=== PATIENT | male | born 1960 | race Caucasian/White ===

== ENCOUNTER 2019-05-20 02:00 | Emergency (ER) | payer OTHER, BC ==
[2019-05-20 02:15] VITALS: BP 168/79; PULSE 74; RESP 20; TEMP 97.9
[2019-05-20] MEDS ORDERED: HYDROcodone/APAP 5-325MG 1 EACH TAB PO STA (02:27)
[2019-05-20] MEDS ORDERED: PROPARACAINE 0.5% OPHTH DROPS 15 ML BTL LEFT EYE STA (02:27)
[2019-05-20] MEDS ORDERED: GABAPENTIN 300 MG CAP PO STA (02:29)
--- NOTE | 2019-05-20 02:43 | ED ---
Eye Problem HPI - General Chief complaint: Eye Problems Stated complaint: Shingles in eye,head pain Time Seen by Provider: 05/20/19 02:20 Source: patient Mode of arrival: ambulatory Limitations: no limitations - History of Present Illness Initial comments: 59-year-old male patient currently doing a clinical trial for lung cancer presents to the emergency department today for evaluation of left eye pain radiating over his scalp. Patient states that he was diagnosed with ocular shingles a couple of weeks ago. He states he has been seen runstitching machine operator and has been doing eyedrops. Did complete antiviral drug regimen. Patient states that his symptoms were improving, but this evening he felt a "snapping" sensation in the left thigh which caused pain to flare in the eyelid and radiate over his forehead and scalp. Patient states that the pain has been significant especially when attempting to touch the eyelid. He denies any drainage from the eye. Denies any fever or chills. States he has had blurred vision since onset of the infection. He was last checked by the runstitching machine operator yesterday. Patient denies any recent shortness breath, chest pain, abdominal pain, nausea, vomiting, diarrhea, constipation, back pain, numbness, tingling, dizziness, weakness, hematuria, dysuria, urinary urgency, urinary frequency, or any other complaints. - Related Data Home Medications Medication Instructions Recorded Confirmed Atropine Ophth Soln 1% 5Ml [Isopto 0 ml 05/20/19 Atropine 1% 5Ml] Cetirizine HCl 10 mg PO DAILY 05/20/19 05/20/19 Fluconazole 200 mg PO DAILY 05/20/19 05/20/19 Losartan [Cozaar] 25 mg PO DAILY 05/20/19 05/20/19 Rosuvastatin [Crestor] 20 mg PO 05/20/19 metFORMIN HCL [Glucophage] 500 mg PO BID 05/20/19 05/20/19 prednisoLONE [prednisoLONE Oral 15 mg PO 05/20/19 Soln] Previous Rx's Medication Instructions Recorded Gabapentin [Neurontin] 300 mg PO Q8H #45 capsule 05/20/19 Hydrocodone/Acetaminophen [Slater 1 tab PO Q6HR PRN #12 tab 05/20/19 5-325] Allergies Allergy/AdvReac Type Severity Reaction Status Date / Time venom-honey bee Allergy Anaphylaxis Verified 01/18/16 11:34 [bee venom (honey bee)] Review of Systems ROS Statement: Those systems with pertinent positive or pertinent negative responses have been documented in the HPI. ROS Other: All systems not noted in ROS Statement are negative. 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 R lung CA History of Any Multi-Drug Resistant Organisms: None Reported Past Surgical History: Appendectomy, Back Surgery, Orthopedic Surgery Additional Past Surgical History / Comment(s): cervical fusion, bilateral knee arthroscopy, middle finger tendon repair, vasectomy Past Anesthesia/Blood Transfusion Reactions: No Reported Reaction Past Psychological History: No Psychological Hx Reported Smoking Status: Never smoker Past Alcohol Use History: None Reported, Occasional Past Drug Use History: None Reported - Past Family History Father Family Medical History: Cancer General Exam Limitations: no limitations General appearance: alert, in no apparent distress, other (This is a well- developed, well-nourished adult male patient in no acute distress. Vital signs upon presentation are temperature 97.9 degrees, pulse 74, respirations 20, blood pressure 168/79, pulse ox 97% on room air.) Eye exam: Present: PERRL, EOMI, conjunctival injection, other (There is some mild conjunctival injection on the left. There are erythematous lesions noted over the left forehead.). Absent: normal appearance, scleral icterus, periorbital swelling Respiratory exam: Present: normal lung sounds bilaterally. Absent: respiratory distress, wheezes, rales, rhonchi, stridor Cardiovascular Exam: Present: regular rate, normal rhythm, normal heart sounds. Absent: systolic murmur, diastolic murmur, rubs, gallop, clicks Neurological exam: Present: alert, oriented X3, CN II-XII intact Psychiatric exam: Present: normal affect, normal mood Skin exam: Present: warm, dry, intact, normal color. Absent: rash Course Vital Signs 05/20/19 02:10 Temperature 97.9 F Pulse Rate 74 Respiratory 20 Rate Blood Pressure 168/79 O2 Sat by Pulse 97 Oximetry Medical Decision Making - Medical Decision Making 59-year-old male patient presented to the emergency department today for evaluation of pain to the left eye with radiation over the scalp. Patient does have current diagnosis of shingles. Physical examination of the eye is unremarkable. Patient symptoms are consistent with nerve pain related to his infection. He'll be started on Neurontin. He was given pain medication here in the emergency department. He is instructed to follow-up with his primary care physician and the runstitching machine operator for reevaluation as well as possible. Return parameters were discussed in detail. He verbalizes understanding and agree with this plan. Disposition Clinical Impression: Shingles of eyelid Disposition: HOME SELF-CARE Condition: Good Instructions (If sedation given, give patient instructions): Gabapentin (By mouth), Shingles (ED) Additional Instructions: Continue applying cool compresses. Take medications as directed. Gabapentin dosing: Take next dose in 24 hours, then take medication every 12 hours for 2 doses, then switch to every 8 hours. Follow-up with your primary care physician for recheck as soon as possible. Follow-up with your runstitching machine operator for recheck as soon as possible. Return to the emergency department immediately for any new, worsening, or concerning symptoms. Prescriptions: Gabapentin [Neurontin] 300 mg PO Q8H #45 capsule Hydrocodone/Acetaminophen [Slater 5-325] 1 tab PO Q6HR PRN #12 tab PRN Reason: Pain Is patient prescribed a controlled substance at d/c from ED?: No Referrals: Vance Carrillo MD [Primary Care Provider] - 1-2 days Time of Disposition: 03:06
[2019-05-20] MEDS ORDERED: KETOROLAC 30 MG/ML 1 ML VIAL IM STA (03:02)
== END 2019-05-20 03:29 | disposition home or self-care (01) ==
LOC: EC 02:00
DX: B02.39 Other herpes zoster eye disease (principal); M19.90 Unspecified osteoarthritis, unspecified site; Z98.1 Arthrodesis status; Z79.899 Other long term (current) drug therapy; Z79.52 Long term (current) use of systemic steroids; Z79.84 Long term (current) use of oral hypoglycemic drugs; Z91.030 Bee allergy status; Z85.118 Personal history of other malignant neoplasm of bronchus and lung
CPT/HCPCS: 99283; 96372; J1885

== ENCOUNTER → 2022-09-10 | Outpatient (CLI) | payer OTHER ==
[2022-09-10 08:45] LABS: African American GFR (CKD) >90 (>60 ml/min/1.73 sqM); Blood Urea Nitrogen 21 mg/dL (9-20); Non-African American GFR(CKD) >90 (>60 ml/min/1.73 sqM)
--- NOTE | 2022-09-10 10:35 | CT ---
EXAMINATION TYPE: CT angio head neck DATE OF EXAM: 09/10/2022 HISTORY: CORONARY ATHEROSCLEROSIS COMPARISON: PET CT 09/19/2017 CT DLP: 353.7 mGycm. Automated Exposure Control for Dose Reduction was Utilized. TECHNIQUE: CTA scan of the head and neck is performed with IV Contrast, patient injected with 65 mL of Isovue 370, axial images are obtained, coronal and sagittal reformatted images are reviewed. 3D re constructed images are created on an independent workstation and reviewed. FINDINGS: Extensive postsurgical changes involving the right neck are again noted. There is standard three-vessel anatomy of the aortic arch which appears to demonstrate widely patent proximal portions of the great vessels. Remaining portion of the visualized subclavian arteries are p atent. The right carotid artery including the common carotid and internal carotid arteries are widely patent with no evidence of significant stenosis. There is eccentric soft plaque involving the left internal carotid artery just distal to the carotid bifurcation with a residual luminal diameter of 1.6 mm findings suggestive of approximately 65% steno sis. There is slight right vertebral artery dominance. The vertebral arteries are patent bilaterally. Postsurgical change involving the cervical spine with hypertrophic and degenerative changes. Previous soft tissue neck postsurgical dissection is noted. Lung apices are clear. Thyroid enhances normally. No pathologic adenopathy. Dental artifact is noted. Intracranial evaluation demonstrates changes of chronic sinusitis. Right vertebral artery dominant. V ertebrobasilar system is patent. Basilar artery is diminutive in size which can be associated with ve rtebrobasilar insufficiency. Posterior cerebral artery originates from the anterior circulation on th e right. Middle cerebral arteries are patent bilaterally. Anterior cerebral arteries appear to be pat ent. No sizable aneurysm or vascular malformation. Visualized dural venous sinuses enhance normally. Incidental note is made of low-lying cerebellar tonsils. IMPRESSION: 1. There is soft tissue plaque involving the proximal left internal carotid artery with approximately 65% stenosis the residual luminal diameter of 1.6 mm. 2. No evidence of intracranial aneurysm or vascular malformation 3. Extensive postsurgical changes involving the soft tissues of the neck.. NASCET criteria was used in interpretation of this exam?
== END | disposition home or self-care (01) ==
LOC: RADCTMAIN 07:53
PROVIDERS: ATTEND Internal Medicine
DX: I65.22 Occlusion and stenosis of left carotid artery (principal); I25.10 Atherosclerotic heart disease of native coronary artery without angina pectoris; I25.84 Coronary atherosclerosis due to calcified coronary lesion
CPT/HCPCS: 82565; 84520; 70496; 70498; 36415; Q9967

== ENCOUNTER 2023-10-09 05:36 | Inpatient (IN) | payer OTHER ==
[2023-10-06 16:00] VITALS: BMI 25.5
[~2023-10-09 05:36] MED LIST: ALPRAZolam 0.25 MG TAB PO PRN; ALPRAZolam 0.5 MG TAB PO PRN; ASPIRIN 325 MG TAB PO PRN; ASPIRIN 81 MG PO PRN; CLOPIDOGREL 75 MG TAB PO PRN; DEXAMETHASONE SOD PHOSPHATE 4 MG/ML 1 ML VIAL IV ONE; NITROGLYCERIN SL TABS 0.4 MG TAB SUBLINGUAL PRN; ONDANSETRON 4 MG/2 ML VIAL IVP ONE; SODIUM CHLORIDE 0.9% 1,000 ML in EMPTY BAG 1 BAG IV ONE
[2023-10-09] MEDS ORDERED: SODIUM CHLORIDE 0.9% 1,000 ML IV ONE ×2 (06:12→08:50)
[2023-10-09 06:35] LABS: Glucose,Whole Blood 121 mg/dL (70-110)
[2023-10-09 06:36] LABS: Basophils # (A) 0.1 k/uL (0-0.2); Basophils % (A) 1 %; Eosinophils # (A) 0.3 k/uL (0-0.7); Eosinophils % (A) 3 %; HGB 16.7 gm/dL (13.0-17.5); Lymphocytes # (A) 1.2 k/uL (1.0-4.8); Lymphocytes % (A) 12 %; MCH 28.7 pg (25.0-35.0); MCHC 32.6 g/dL (31.0-37.0); MCV 88.1 fL (80.0-100.0); Mean Platelet Volume 7.6; Monocytes # (A) 0.7 k/uL (0-1.0); Monocytes % (A) 7 %; Neutrophils # (A) 7.3 k/uL (1.3-7.7); Neutrophils % (A) 73 %; Platelet Count 258 k/uL (150-450); RBC 5.79 m/uL (4.30-5.90); RDW 12.9 % (11.5-15.5); WBC 9.9 k/uL (3.8-10.6)
[2023-10-09 06:56] LABS: African American GFR (CKD) >90 (>60 ml/min/1.73 sqM); Anion Gap 12 mmol/L; Blood Urea Nitrogen 20 mg/dL (9-20); Calcium 9.6 mg/dL (8.4-10.2); Carbon Dioxide 27 mmol/L (22-30); Chloride 100 mmol/L (98-107); Glucose 139 mg/dL (74-99); Non-African American GFR(CKD) >90 (>60 ml/min/1.73 sqM); Potassium 4.7 mmol/L (3.5-5.1); Sodium 139 mmol/L (137-145)
[2023-10-09] MEDS ORDERED: HYDROmorphone 0.5 MG/0.5 ML SYRINGE IVP PRN (07:00)
[2023-10-09] MEDS ORDERED: ceFAZolin 2 GM in SODIUM CHLORIDE 0.9% 500 ML 500 ML IRRIGATION PRN (07:00)
[2023-10-09] MEDS ORDERED: MIDAZOLAM 1 MG/ML 5 ML VIAL IV STA (07:00)
[2023-10-09] MEDS ORDERED: LIDOCAINE 1% INJ 10MG/ML (20 ML MDV) ONE (07:21)
--- NOTE | 2023-10-09 07:30 | P.GSHP ---
History of Present Illness H&P Date: 10/09/23 Chief Complaint: carotid stenosis 63 year old gentleman with history of radical neck dissection, radiation, carotid stenosis, presents to the hospital for left TCAR. He denies any lateralizing symptoms such as weakness, vision changes or speech issues. He denies any fevers, chills, chest pain or shortness of breath. - Review of Systems All systems: negative (what is mentioned in the PMH or HPI) Past Medical History Past Medical History: Cancer, Diabetes Mellitus, Deep Vein Thrombosis (DVT), Hyperlipidemia, Hypertension, Osteoarthritis (OA) Additional Past Medical History / Comment(s): tonsillar cancer 2012 w/ chemo & radiation. 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 History of Any Multi-Drug Resistant Organisms: None Reported Past Surgical History: Appendectomy, Hernia Repair, Orthopedic Surgery Additional Past Surgical History / Comment(s): right neck disection with 21 lymph nodes removed (2015)., cervical fusion, bilateral knee arthroscopy, middle finger tendon repair, vasectomy , inguinal hernia. Past Anesthesia/Blood Transfusion Reactions: No Reported Reaction Past Psychological History: Anxiety Smoking Status: Never smoker Past Alcohol Use History: Occasional Past Drug Use History: Marijuana Additional Drug Use History / Comment(s): occasional gummy for sleep - Past Family History Father Family Medical History: Congestive Heart Failure (CHF), Coronary Artery Disease (CAD) Mother Family Medical History: Cancer, CVA/TIA Additional Family Medical History / Comment(s): lung cancer Brother(s) Family Medical History: Cancer Additional Family Medical History / Comment(s): prostate and skin cancer Medications and Allergies Home Medications Medication Instructions Recorded Confirmed Type Losartan [Cozaar] 25 mg PO DAILY 05/20/19 10/09/23 History Rosuvastatin [Crestor] 20 mg PO DAILY 05/20/19 10/09/23 History metFORMIN HCL [Glucophage] 500 mg PO BID 05/20/19 10/09/23 History Aspirin 325 mg PO DAILY 10/06/23 10/09/23 History Clopidogrel [Plavix] 75 mg PO DAILY 10/06/23 10/09/23 History Dulaglutide [Trulicity] 0.75 mg SQ WEEKLY 10/06/23 10/06/23 History Empagliflozin [Jardiance] 25 mg PO DAILY 10/06/23 10/09/23 History Escitalopram [Lexapro] 5 mg PO DAILY 10/06/23 10/09/23 History Prednisolone Acetate/Pf 1 drop LEFT EYE BID 10/06/23 10/09/23 History [Prednisolone Acet 1% Eye Drop] Allergies Allergy/AdvReac Type Severity Reaction Status Date / Time venom-honey bee Allergy Anaphylaxis Verified 10/06/23 15:05 [bee venom (honey bee)] Surgical - Exam Vital Signs Temp Pulse Resp BP Pulse Ox 97.4 F L 77 16 193/96 98 10/09/23 06:17 10/09/23 06:17 10/09/23 06:17 10/09/23 06:17 10/09/23 06:17 - General well developed, well nourished, no distress - Eyes PERRL - ENT normal pinna, normal nares - Neck right neck with scarring extending from the mandible to the clavicle no masses, no bruits - Respiratory normal expansion, normal respiratory effort - Cardiovascular Rhythm: regular - Abdomen Abdomen: soft, non tender - Neurologic normal coordination, normal sensation - Musculoskeletal normal gait - Psychiatric oriented to time, oriented to person, oriented to place, speech is normal Results - Labs 10/09/23 06:20 10/09/23 06:20 Abnormal Lab Results - Last 24 Hours (Table) 10/09/23 10/09/23 Range/Units 06:20 06:26 Creatinine 0.60 L (0.66-1.25) mg/dL Glucose 139 H (74-99) mg/dL POC Glucose (mg/dL) 121 H (70-110) mg/dL Diabetes panel 10/09/23 Range/Units 06:20 Sodium 139 (137-145) mmol/L Potassium 4.7 (3.5-5.1) mmol/L Chloride 100 (98-107) mmol/L Carbon Dioxide 27 (22-30) mmol/L BUN 20 (9-20) mg/dL Creatinine 0.60 L (0.66-1.25) mg/dL Glucose 139 H (74-99) mg/dL Calcium 9.6 (8.4-10.2) mg/dL Calcium panel 10/09/23 Range/Units 06:20 Calcium 9.6 (8.4-10.2) mg/dL Pituitary panel 10/09/23 Range/Units 06:20 Sodium 139 (137-145) mmol/L Potassium 4.7 (3.5-5.1) mmol/L Chloride 100 (98-107) mmol/L Carbon Dioxide 27 (22-30) mmol/L BUN 20 (9-20) mg/dL Creatinine 0.60 L (0.66-1.25) mg/dL Glucose 139 H (74-99) mg/dL Calcium 9.6 (8.4-10.2) mg/dL Adrenal panel 10/09/23 Range/Units 06:20 Sodium 139 (137-145) mmol/L Potassium 4.7 (3.5-5.1) mmol/L Chloride 100 (98-107) mmol/L Carbon Dioxide 27 (22-30) mmol/L BUN 20 (9-20) mg/dL Creatinine 0.60 L (0.66-1.25) mg/dL Glucose 139 H (74-99) mg/dL Calcium 9.6 (8.4-10.2) mg/dL Assessment and Plan Assessment: Left ICA stenosis >80% History of radical neck surgery and radiation Plan: CTA imaging and carotid Doppler was discussed with the patient in full detail demonstrating severe stenosis of the left ICA which has worsened over the last 6 months. I discussed all options for intervention including open surgical repair, endarterectomy and patch angioplasty but due to the fact that he has had a radic al neck and previous radiation the risk would be increased and therefore decision was made for transfer carotid artery revascularization and stenting. After discussion of treatment options we used shared decision making with the patient and determined TCAR procedure would be best.
[2023-10-09] MEDS ORDERED: PHENYLEPHRINE 10 MG/ML VIAL ONE (07:35)
[2023-10-09] MEDS ORDERED: DEXMEDETOMIDINE 200 MCG/2 ML VIAL IV ONE (07:35)
[2023-10-09] MEDS ORDERED: GLYCOPYRROLATE 0.2 MG/ML 2 ML VIAL ONE (07:35)
[2023-10-09] MEDS ORDERED: fentaNYL (PF) 50 MCG/ML 2 ML AMP ONE (07:35)
[2023-10-09] MEDS ORDERED: MIDAZOLAM 2 MG/2 ML VIAL ONE (07:35)
[2023-10-09] MEDS ORDERED: PROTAMINE SULFATE 10 MG/ML 5 ML VIAL ONE (07:35)
[2023-10-09] MEDS ORDERED: HEPARIN SODIUM,PORCINE 5,000 UNIT/ML 1 ML VIAL ONE (07:35)
[2023-10-09] MEDS ORDERED: LIDOCAINE 1% INJ 10MG/ML (20 ML MDV) SQ ONE (08:05)
[2023-10-09] MEDS ORDERED: IOPAMIDOL-370 100ML BTL INJ ONE (08:58)
[2023-10-09] MEDS ORDERED: RX INFO: IV CONTRAST WAS GIVEN 1 EACH MISC MISCELLANE PRN (09:00)
--- NOTE | 2023-10-09 09:14 | P.OP ---
Description of Procedure: Date: 10/09/2023 Preoperative diagnosis: Left ICA stenosis greater than 80%, previous radical neck dissection and radiation Postoperative diagnosis: Same Procedure: Left Transcarotid artery revascularization with stenting Surgeon: Nickolas Aviles DO [employer] Director: None Anesthesia: Local with conscious sedation Complications: None Condition: Stable Flow reversal time: 7 minutes Lesion length: 3.0 mm Pre-stenosis greater than 80% Postoperative stenosis less than 20% Indication for procedure: 63-year-old gentleman with history of radical neck dissection and previous radiation who has been followed in the office for carotid stenosis was found to have increased stenosis on the left greater than 80% found on carotid Doppler and CT angiogram. He presents today for left TCAR. Operative narrative: After written and informed consent was obtained the patient all risks benefits and competitions were described the patient was brought to the Test Worker and laid in a supine position. The area of the neck and groins were prepped and draped in usual sterile fashion after appropriate anesthetic was performed per the anesthesiologist. A timeout was performed in normal fashion and antibiotics were administered prior to incision. Utilizing ultrasound the left common carotid artery was located and a transverse incision was created overlying this area. Dissection was carried between the sternocleidomastoid musculature down to the carotid sheath. The sheath was then incised and the common carotid artery was located and dissected free in a circumferential manner and controlled with umbilical tape. Once controlled attention was placed down to the common femoral vein on the right and utilizing ultrasound the vein was cannulated and the 8-Swedish sheath was placed in normal fashion. Attention was then placed back to the carotid artery and the patient was administered heparin and followed with ACTs and redosed as needed for ACT above 200. A pursestring suture was then placed at the common carotid artery with 6-0 Prolene and utilizing a multipurpose needle the common carotid artery was accessed and wire was placed followed by a 4-Swedish sheath. Carotid angiogram was then obtained demonstrating significant stenosis greater than 80% in the internal carotid artery. Stiff wire was then placed followed by the 8 Swedish Silkroad sheath. Flow reversal was then established with the enroute [employer] system after patient's blood pressure was increased to above 160, heart rate above 60 and ACT above 250. 014 wire was then placed across the lesion followed by a 4 x 30mm balloon and balloon angioplasty was performed followed by an 8 x 40 mm Silkroad stent. Postdilatation was not completed and final angiogram was obtained demonstrating complete resolution of the stenosis. All guidewires and catheters were removed and the sheath was removed and the arteriotomy was secured with the previously placed pursestring suture. Hemostasis was assured with Gelfoam and thrombin. The femoral sheath was also removed and pressure was held for hemostasis. The patient all procedure well and was moving all extremities and following commands. She was then sent to PACU for recovery.
[2023-10-09] MEDS ORDERED: MAG HYDROX/AL HYDROX/SIMETH 30 ML CUP PO PRN (09:15)
[2023-10-09] MEDS ORDERED: ATROPINE SULFATE 0.1 MG/ML 10ML SYRINGE IV PRN (09:15)
--- NOTE | 2023-10-09 09:39 | IR ---
EXAMINATION TYPE: IR stent intravas non coronary DATE OF EXAM: 10/09/2023 CLINICAL HISTORY: Left carotid stenosis TECHNIQUE: Fluoroscopy. COMPARISON: CT neck July 17, 2023 FINDINGS: Fluoroscopic guidance was provided during left carotid stenosis treatment or stenting proc edure performed by Dr. Aviles. A total of 3.0 minutes of fluoroscopic time was utilized during the procedure and 225 spot images was acquired. Please refer to procedure note for further details. IMPRESSION: As Above. TOTAL DAP = 2.10 Gy x cm2.
[2023-10-09] MEDS ORDERED: PHENYLEPHRINE 10 MG/ML VIAL IV ONE ×2 (09:52→10:17)
[2023-10-09] MEDS ORDERED: PHENYLEPHRINE 40 MG in SODIUM CHLORIDE 0.9% 250 ML IV ONE (10:15)
[2023-10-09] MEDS: PSEUDOEPHEDRINE 30 MG TAB PO SCH ×3 (11:51→21:58)
[2023-10-09] MEDS ORDERED: NALOXONE 0.4 MG/ML 1 ML VIAL IV PRN (12:29)
[2023-10-09] MEDS ORDERED: Potassium Replacement Protocol 1 EACH MISC MISCELLANE PRN (12:29)
[2023-10-09] MEDS ORDERED: Phosphorus Replacement Protoco 1 EACH MISC MISCELLANE PRN (12:29)
[2023-10-09] MEDS ORDERED: Magnesium Replacement Protocol 1 EACH MISC MISCELLANE PRN (12:29)
[2023-10-09] MEDS: LACTATED RINGERS 1,000 ML IV SCH (12:32)
[2023-10-09 12:42] LABS: Glucose,Whole Blood 92 mg/dL (70-110)
[2023-10-09] MEDS ORDERED: DEXTROSE 50% SYRINGE 50 ML IVP PRN ×2 (15:37)
[2023-10-09 16:25] LABS: Glucose,Whole Blood 87 mg/dL (70-110)
[2023-10-09] MEDS: INSULIN ASPART (NovoLOG) 100 UNIT/ML VIAL SQ SCH ×2 (16:39→20:16)
--- NOTE | 2023-10-09 17:02 | P.CNPUL ---
History of Present Illness Consult date: 10/09/23 Requesting physician: Nickolas Aviles Reason for consult: other (Critical care management) Chief complaint: Carotid stenosis History of present illness: This is a very pleasant 63-year-old male patient with a known history of previous radical neck dissection and radiation, diabetes mellitus, hypertension, hyperlipidemia and carotid stenosis. He was brought in today electively for a left TCAR procedure. He did undergo a left trans-carotid artery revascularization with stenting. He tolerated the procedure well however he did require a small amount of Deejay-Synephrine postoperatively and seen in consultation in the intensive care unit. He is currently awake and alert in no acute distress. He is resting comfortably in bed. No neurologic deficits. He is maintaining good O2 saturations in the 90s on room air. He is in sinus rhythm. Count 9.9. Hemoglobin 16.7. Platelets 258. Sodium 139. Potassium 4.7. Bicarb 27. BUN 20. Creatinine 0.60. Review of Systems REVIEW OF SYSTEMS: CONSTITUTIONAL: Denies any recent significant weight loss or weight gain. EYES: Denies change in vision. EARS, NOSE, MOUTH, THROAT: Denies headaches, denies sore throat. CARDIOVASCULAR: Denies chest pain, palpitations or syncopal episodes. RESPIRATORY: Denies shortness of breath, cough, congestion or hemoptysis. GASTROINTESTINAL: Denies change in appetite, denies abdominal pain GENITOURINARY: Denies hematuria, denies infections. MUSKULOSKELETAL: Denies pain, denies swelling. INTEGUMENTARY: Denies rash, denies eczema. NEUROLOGICAL: Denies recent memory loss, no recent seizure activity. PSYCHIATRIC: Denies anxiety, denies depression. HEMATOLOGIC/LYMPHATIC: Denies anemia, denies enlarged lymph nodes. 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 History of Any Multi-Drug Resistant Organisms: None Reported Past Surgical History: Appendectomy, Hernia Repair, Orthopedic Surgery Additional Past Surgical History / Comment(s): right neck disection with 21 lymph nodes removed (2016)., cervical fusion, bilateral knee arthroscopy, middle finger tendon repair, vasectomy , inguinal hernia. Past Anesthesia/Blood Transfusion Reactions: No Reported Reaction Past Psychological History: Anxiety Smoking Status: Never smoker Past Alcohol Use History: Occasional Past Drug Use History: Marijuana Additional Drug Use History / Comment(s): occasional gummy for sleep - Past Family History Father Family Medical History: Congestive Heart Failure (CHF), Coronary Artery Disease (CAD) Mother Family Medical History: Cancer, CVA/TIA Additional Family Medical History / Comment(s): lung cancer Brother(s) Family Medical History: Cancer Additional Family Medical History / Comment(s): prostate and skin cancer Medications and Allergies Home Medications Medication Instructions Recorded Confirmed Type Losartan [Cozaar] 25 mg PO DAILY 05/20/19 10/09/23 History Rosuvastatin [Crestor] 20 mg PO DAILY 05/20/19 10/09/23 History metFORMIN HCL [Glucophage] 500 mg PO BID 05/20/19 10/09/23 History Aspirin 325 mg PO DAILY 10/06/23 10/09/23 History Clopidogrel [Plavix] 75 mg PO DAILY 10/06/23 10/09/23 History Dulaglutide [Trulicity] 0.75 mg SQ WEEKLY 10/06/23 10/06/23 History Empagliflozin [Jardiance] 25 mg PO DAILY 10/06/23 10/09/23 History Escitalopram [Lexapro] 5 mg PO DAILY 10/06/23 10/09/23 History Prednisolone Acetate/Pf 1 drop LEFT EYE BID 10/06/23 10/09/23 History [Prednisolone Acet 1% Eye Drop] Allergies Allergy/AdvReac Type Severity Reaction Status Date / Time venom-honey bee Allergy Anaphylaxis Verified 10/06/23 15:05 [bee venom (honey bee)] Physical Exam Vitals: Vital Signs Temp Pulse Pulse Pulse Resp BP BP 10/09/23 16:00 97.7 F 71 18 109/68 10/09/23 15:45 69 17 109/68 10/09/23 15:30 68 16 131/71 10/09/23 15:15 72 15 110/62 10/09/23 15:00 77 13 107/62 10/09/23 14:45 70 14 109/72 10/09/23 14:30 82 16 124/72 10/09/23 14:15 95 13 118/84 10/09/23 14:00 103 H 15 121/63 10/09/23 13:45 86 12 123/73 10/09/23 13:30 79 15 123/73 10/09/23 13:15 74 17 123/73 10/09/23 13:10 70 19 123/73 10/09/23 13:00 78 13 130/83 10/09/23 12:50 97.7 F 109 H 14 130/83 10/09/23 12:01 72 16 10/09/23 11:46 70 16 10/09/23 11:32 67 16 10/09/23 11:15 66 16 10/09/23 11:00 70 16 10/09/23 10:46 66 16 10/09/23 10:30 65 16 10/09/23 10:15 61 16 10/09/23 10:00 65 16 10/09/23 09:53 64 16 10/09/23 09:46 64 16 10/09/23 09:25 97.3 F L 69 16 10/09/23 06:17 97.4 F L 77 16 193/96 BP BP Pulse Ox 10/09/23 16:00 95 10/09/23 15:45 93 L 10/09/23 15:30 94 L 10/09/23 15:15 93 L 10/09/23 15:00 93 L 10/09/23 14:45 93 L 10/09/23 14:30 93 L 10/09/23 14:15 92 L 10/09/23 14:00 94 L 10/09/23 13:45 94 L 10/09/23 13:30 93 L 10/09/23 13:15 94 L 10/09/23 13:10 94 L 10/09/23 13:00 95 10/09/23 12:50 97 10/09/23 12:01 116/68 112/70 99 10/09/23 11:46 105/64 109/53 100 10/09/23 11:32 110/67 119/54 100 10/09/23 11:15 123/68 110/51 100 10/09/23 11:00 115/64 127/62 100 01/05/24 10:46 98/57 108/57 100 10/09/23 10:30 103/58 102/48 100 10/09/23 10:15 131/71 117/55 100 10/09/23 10:00 90/46 102/58 100 10/09/23 09:53 116/56 100 10/09/23 09:46 100/57 90/45 100 10/09/23 09:25 143/89 100 10/09/23 06:17 180/104 98 Intake and Output 10/09/23 10/09/23 10/09/23 06:59 14:59 22:59 Intake Total 2050 150 Output Total 400 200 Balance 1650 -50 Intake: IV 1900 Intake, IV Titration 150 150 Amount Sodium Chloride 0.9% 1, 150 150 000 ml In Empty Bag 1 bag @ 1 ML/KG/HR 73.936 mls/ hr IV .[id number] ONE Rx#: [id number] Output: Urine 400 200 Other: Voiding Method Urinal Weight 73.936 kg ABP, PAP, CO, CI - Last 8 Hours Arterial Blood Pressure 130/75 Arterial Blood Pressure 130/59 Arterial Blood Pressure 147/66 Arterial Blood Pressure 147/67 GENERAL EXAM: Alert, pleasant 63-year-old male, on room air, comfortable in no apparent distress. HEAD: Normocephalic. EYES: Normal reaction of pupils, equal size. NOSE: Clear with pink turbinates. THROAT: No erythema or exudates. NECK: No masses, no JVD. Surgical incision clean dry well approximated CHEST: No chest wall deformity. LUNGS: Equal air entry with no crackles, wheeze, rhonchi or dullness. CVS: S1 and S2 normal with no audible murmur, regular rhythm. ABDOMEN: No hepatosplenomegaly, normal bowel sounds, no guarding or rigidity. SPINE: No scoliosis or deformity SKIN: No rashes CENTRAL NERVOUS SYSTEM: No focal deficits, tone is normal in all 4 extremities. EXTREMITIES: There is no peripheral edema. No clubbing, no cyanosis. Peripheral pulses are intact. Results - Laboratory Findings CBC and BMP: 10/09/23 06:20 10/09/23 06:20 Abnormal lab findings: Abnormal Labs 10/09/23 10/09/23 06:20 06:26 Creatinine 0.60 L Glucose 139 H POC Glucose (mg/dL) 121 H Assessment and Plan Assessment: Left carotid artery disease of greater than 80% status post left transcribed artery revascularization with stenting. Postoperative day #0 Postoperative hypotension requiring Deejay-Synephrine, recovered, not an unexpected outcome of carotid surgery History of previous radical neck dissection and radiation secondary to tonsillar cancer in 2013 History of right lung cancer Lifelong nonsmoker Diabetes mellitus Hypertension Hyperlipidemia Plan: The patient was seen and evaluated Currently stable and on room air No neurologic deficits Deejay-Synephrine weaned off Continue to monitor closely in the intensive care unit We will continue to follow and make further recommendations based on his cl inical status I have personally seen and examined the patient, performed the documentation and the assessment and plan as written. Number of minutes spent on the visit: 20.
[2023-10-09 19:35] LABS: Glucose,Whole Blood 152 mg/dL (70-110)
[2023-10-09] MEDS ORDERED: ATORVASTATIN 40 MG TAB PO SCH (21:00)
[2023-10-09] MEDS: ACETAMINOPHEN TAB 325 MG TAB PO PRN (21:21)
[2023-10-10 04:04] LABS: Basophils # (A) 0.1 k/uL (0-0.2); Basophils % (A) 1 %; Eosinophils # (A) 0.4 k/uL (0-0.7); Eosinophils % (A) 4 %; HCT 44.8 % (39.0-53.0); HGB 14.6 gm/dL (13.0-17.5); Lymphocytes # (A) 0.9 k/uL (1.0-4.8); Lymphocytes % (A) 8 %; MCH 28.7 pg (25.0-35.0); MCHC 32.7 g/dL (31.0-37.0); MCV 87.9 fL (80.0-100.0); Mean Platelet Volume 8.1; Monocytes # (A) 0.9 k/uL (0-1.0); Monocytes % (A) 8 %; Neutrophils # (A) 7.9 k/uL (1.3-7.7); Neutrophils % (A) 76 %; Platelet Count 213 k/uL (150-450); RDW 13.1 % (11.5-15.5); WBC 10.4 k/uL (3.8-10.6)
[2023-10-10 04:27] LABS: African American GFR (CKD) >90 (>60 ml/min/1.73 sqM); Anion Gap 9 mmol/L; Blood Urea Nitrogen 15 mg/dL (9-20); Calcium 8.3 mg/dL (8.4-10.2); Carbon Dioxide 26 mmol/L (22-30); Chloride 102 mmol/L (98-107); Glucose 86 mg/dL (74-99); Non-African American GFR(CKD) >90 (>60 ml/min/1.73 sqM); Potassium 4.2 mmol/L (3.5-5.1); Sodium 137 mmol/L (137-145)
[2023-10-10] MEDS: LACTATED RINGERS 1,000 ML IV SCH (06:25)
[2023-10-10 06:44] LABS: Glucose,Whole Blood 95 mg/dL (70-110)
[2023-10-10] MEDS: INSULIN ASPART (NovoLOG) 100 UNIT/ML VIAL SQ SCH ×2 (06:54→11:48)
[2023-10-10] MEDS: PSEUDOEPHEDRINE 30 MG TAB PO SCH (07:34)
[2023-10-10] MEDS: ACETAMINOPHEN TAB 325 MG TAB PO PRN (07:35)
[2023-10-10] MEDS ORDERED: ASPIRIN 81 MG PO SCH (09:00)
[2023-10-10] MEDS ORDERED: CLOPIDOGREL 75 MG TAB PO SCH (09:00)
[2023-10-10 11:05] LABS: Glucose,Whole Blood 149 mg/dL (70-110)
--- NOTE | 2023-10-10 12:40 | P.PN ---
Subjective Progress Note Date: 10/10/23 Principal diagnosis: status post left carotid revascularization with stenting, postoperative day #1 This is a very pleasant 63-year-old male patient with a known history of previo us radical neck dissection and radiation, diabetes mellitus, hypertension, hyperlipidemia and carotid stenosis. He was brought in today electively for a left TCAR procedure. He did undergo a left trans-carotid artery revascularization with stenting. He tolerated the procedure well however he did require a small amount of Deejay-Synephrine postoperatively and seen in consultation in the intensive care unit. He is currently awake and alert in no acute distress. He is resting comfortably in bed. No neurologic deficits. He is maintaining good O2 saturations in the 90s on room air. He is in sinus rhythm. Count 9.9. Hemoglobin 16.7. Platelets 258. Sodium 139. Potassium 4.7. Bicarb 27. BUN 20. Creatinine 0.60. Reevaluated today on 10/10/23, patient is doing very well today. He is actually being considered for discharge home. No cough no wheezing no shortness of breath, patient is on room air, hemodynamically stable. CBC normal basic metabolic profile is normal renal profile is normal Objective - Vital Signs Vital signs: Vital Signs Temp 97.9 F 10/10/23 08:00 Pulse 72 10/10/23 11:00 Resp 21 10/10/23 11:00 BP 127/68 10/10/23 11:00 Pulse Ox 94 L 10/10/23 11:00 FiO2 Intake & Output 10/09/23 10/10/23 10/10/23 18:59 06:59 18:59 Intake Total 2350 575 Output Total 600 1000 1205 Balance 1750 -425 -1205 Weight 73.936 kg 75.5 kg Intake: IV 1900 Intake, IV Titration 450 75 Amount Sodium Chloride 0.9% 1, 450 75 000 ml In Empty Bag 1 bag @ 1 ML/KG/HR 73.936 mls/ hr IV .[id number] ONE Rx#: [id number] Oral 500 Output: Urine 600 1000 1205 Other: Voiding Method Urinal Urinal Urinal # Voids 1 1 ABP, PAP, CO, CI - Last Documented Arterial Blood Pressure 130/75 - Exam Physical Exam: Revealed a 63-year-old white male in no distress HEENT:[Neck is supple.] [No neck masses.] [No thyromegaly.] [No JVD.] There is evidence however of previous neck dissection, surgical site is clean, and no discharge. Chest: [Clear throughout, no crackles, no rhonchi, no wheezes.] Cardiac Exam: [Normal S1 and S2, no S3 gallop, no murmur.] Abdomen: [Soft, nontender, no megaly, no rebound, no guarding, normal bowel sounds.] Extremities: [No clubbing, no edema, no cyanosis.] Neurological Exam: [No focal neurologic deficit.] Alert and oriented 3 Psychiatric: Normal mood affect and normal mental status examination - Labs CBC & Chem 7: 10/10/23 03:23 10/10/23 03:23 Labs: Abnormal Lab Results - Last 24 Hours (Table) 10/09/23 10/10/23 10/10/23 Range/Units 19:33 03:23 03:23 Neutrophils # 7.9 H (1.3-7.7) k/uL Lymphocytes # 0.9 L (1.0-4.8) k/uL Creatinine 0.60 L (0.66-1.25) mg/dL POC Glucose (mg/dL) 152 H (70-110) mg/dL Calcium 8.3 L (8.4-10.2) mg/dL 10/10/23 Range/Units 11:04 Neutrophils # (1.3-7.7) k/uL Lymphocytes # (1.0-4.8) k/uL Creatinine (0.66-1.25) mg/dL POC Glucose (mg/dL) 149 H (70-110) mg/dL Calcium (8.4-10.2) mg/dL Assessment and Plan Assessment: Impression: Left carotid artery disease of greater than 80% status post left transcribed artery revascularization with stenting. Postoperative day #1 Postoperative hypotension requiring Deejay-Synephrine, recovered, not an unexpected outcome of carotid surgery, exact etiology is not clear, undetermined History of previous radical neck dissection and radiation secondary to tonsillar cancer in 2013 History of right lung cancer Lifelong nonsmoker Diabetes mellitus Hypertension Hyperlipidemia Recommendation: Continue present supportive care measures Agree with discharge planning if cleared by vascular surgery today. Patient to take his incentive spirometer with him home if discharge home today. Time with Patient: Less than 30
--- NOTE | 2023-10-10 13:43 | P.CONS ---
History of Present Illness - Reason for Consult Consult date: 10/09/23 Medical management Requesting physician: Nickolas Aviles - Chief Complaint S/P Left Trnscarotid artery revascularization with stent - History of Present Illness HISTORY OF PRESENT ILLNESS: This is a 63-year-old male with a previous medical history significant for hypertension and hypertensive perivascular disease, hyperlipidemia, diabetes mellitus type 2, tonsillar cancer in 2016 status post chemo radiation therapy as well as right neck dissection with lymph node removal in 2016, lung cancer in 2018 post experimental treatment without any chemo radiation therapy, patient follows with oncology on a regular basis, history of DVT, patient was recently found to have a significant stenosis of the left internal carotid artery, he was referred to we'll schedule him to have a left internal carotid artery revascularization with trans-carotid stent placement which was done today, and we were asked to see the patient for medical management. Patient is laying down in bed in no acute distress, however his blood pressures a bit on the lower side, he was started on Sudafed 60 mg orally 3 times every day to keep his blood pressure around 120/80, patient has been started on aspirin as well as Plavix to keep the stent wide open. He'll be monitored in intensive care unit for the next 24 hours. REVIEW OF SYSTEMS: Constitutional: No documented fever, no chills, no night sweats. No weight change. No weakness, fatigue or lethargy. No daytime sleepiness. EENT: No headache. No blurred vision or double vision, no loss of vision. No loss of Hearing, no ringing in the ears, no dizziness. No nasal drainage or congestion. No epistaxis. No sore throat. Lungs: No shortness of breath, no cough, no sputum production. No wheezing. Reports dyspnea with activity. Cardiovascular: No chest pain, no lower extremity edema. No palpitations. No p aroxysmal nocturnal dyspnea. No orthopnea. No lightheadedness or dizziness. No syncopal episodes. Abdominal: Reports abdominal pain. No nausea, vomiting. No diarrhea. No constipation. No bloody or tarry stools reports loss of appetite. Genitourinary: No dysuria, increased frequency, urgency. No urinary retention. Musculoskeletal: No myalgias. No muscle weakness, no gait dysfunction, no fr equent falls. No back pain. No neck pain. Integumentary: left base neck wound is dry no lesions. No rash or pruritus. No unusual bruising. No change in hair or nails. Neurologic: No aphasia. No facial droop. No change in mentation. No head injury. No headache. No paralysis. No paresthesia. Psychiatric: No depression. No anxiety. No mood swings. Endocrine: No abnormal blood sugars. No weight change. PAST MEDICAL HISTORY: Hypertension and hypertensive cardio vascular disease. Hyperlipidemia. Diabetes mellitus type 2. Tonsillar cancer 2016 status post right neck dissection with 21 lymph node removal. Right lung cancer status post external mental treatment DVT. Osteoarthritis. Enlarged prostate PAST SURGICAL HISTORY: Right neck dissection with 21 lymph node removal for tonsillar cancer 2016 post chemoradiotherapy Left Inguinal hernia repair 2018 Appendectomy 1970 Bilateral total knee arthroplasty. 1976 Middle finger tendon repair. Vasectomy. 1995 Cervical fusion. SOCIAL HISTORY: Patient is a lifelong nonsmoker, he denies any alcohol ingestion, he smokes marijuana once in a while. FAMILY HISTORY: Father at age 76 had a history of coronary artery disease status post coronary artery bypass graft 3 along with congestive heart failure, mother at age of 54 from LUNG CANCER PATIENT HAD 3 BROTHERS ONE OF THE BROTHERS WITH PROSTATE CANCER AND 3 SISTERS NO MAJOR MEDICAL PROBLEMS. PHYSICAL EXAMINATION: General: HEENT: Head is atraumatic, normocephalic, pupils were equal round reactive to light and recommendation, extraocular muscle movement were intact, sclera nonicteric, conjunctivae were pale, mucous membranes of the mouth are somewhat dry. Neck: Supple, no JVP, normal carotid upstroke bilaterally, no lymphadenopathy. Incision appears to be clean and dry at the base of the left neck. Chest: Decreased breath sounds at the bases, few rhonchi, no expiratory wheezes, no chest wall tenderness, no intercostal retractions. Heart: First heart sound is normal, second heart sound is normal there is no gallop or murmur. Abdomen: Soft, nontender, nondistended, positive bowel sounds. Extremities: There is no edema no calf tenderness DP +2 bilaterally. Neurologic examination: Patient is awake alert and oriented x3 cranial nerves II-12 appear grossly intact, muscle power were 5 out of 5 in upper extremities and 5 out of 5 in bilateral lower extremities, deep tendon reflexes normal bilaterally. ASSESSMENT AND PLAN: 1. Postoperative day #0 status post left internal carotid artery revascularization with trans-carotid stenting of the left internal carotid artery. Monitor the patient in the intensive care unit very closely, he would be started on Sudafed 60 mg orally 3 times every day to keep his systolic blood pressure around 120 over diastolic 80, monitor the patient's symptoms very closely, vascular surgeries following, we'll continue current pain management, Tylenol 650 mg every 6 hours as needed, hold blood pressure medication for now. 2. Hypertension and hypertensive cardiovascular disease. Currently hypotensive, hold off his medication for now. Reevaluate the patient the next 24 hours, hopefully he will be able to get back on his home medications. 3. Mixed hyperlipidemia. Continue patient on atorvastatin 40 mg orally once every day. 4. Diabetes mellitus type 2. Hold metformin for now, continue patient on slidi ng scale insulin. 5 GERD with hiatal hernia. Continue patient on PPI. 6. Enlarged prostate. Monitor the patient for urinary retention. 7. History of tonsillar cancer status post right neck dissection with lymph node removal 2015 currently in remission. 8. History of lung cancer in 2018 stable. 9. DVT prophylaxis. Early ambulation. 10. GI prophylaxis. Continue PPI. 11. Thank you for the consult we'll follow with you. 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 History of Any Multi-Drug Resistant Organisms: None Reported Past Surgical History: Appendectomy, Hernia Repair, Orthopedic Surgery Additional Past Surgical History / Comment(s): right neck disection with 21 lymph nodes removed (2015)., cervical fusion, bilateral knee arthroscopy, middle finger tendon repair, vasectomy , inguinal hernia. Past Anesthesia/Blood Transfusion Reactions: No Reported Reaction Past Psychological History: Anxiety Smoking Status: Never smoker Past Alcohol Use History: Occasional Past Drug Use History: Marijuana Additional Drug Use History / Comment(s): occasional gummy for sleep - Past Family History Father Family Medical History: Congestive Heart Failure (CHF), Coronary Artery Disease (CAD) Mother Family Medical History: Cancer, CVA/TIA Additional Family Medical History / Comment(s): lung cancer Brother(s) Family Medical History: Cancer Additional Family Medical History / Comment(s): prostate and skin cancer Medications and Allergies Home Medications Medication Instructions Recorded Confirmed Type Losartan [Cozaar] 25 mg PO DAILY 05/20/19 10/09/23 History Rosuvastatin [Crestor] 20 mg PO DAILY 05/20/19 10/09/23 History metFORMIN HCL [Glucophage] 500 mg PO BID 05/20/19 10/09/23 History Aspirin 325 mg PO DAILY 10/06/23 10/09/23 History Clopidogrel [Plavix] 75 mg PO DAILY 10/06/23 10/09/23 History Dulaglutide [Trulicity] 0.75 mg SQ WEEKLY 10/06/23 10/06/23 History Empagliflozin [Jardiance] 25 mg PO DAILY 10/06/23 10/09/23 History Escitalopram [Lexapro] 5 mg PO DAILY 10/06/23 10/09/23 History Prednisolone Acetate/Pf 1 drop LEFT EYE BID 10/06/23 10/09/23 History [Prednisolone Acet 1% Eye Drop] Allergies Allergy/AdvReac Type Severity Reaction Status Date / Time venom-honey bee Allergy Anaphylaxis Verified 10/06/23 15:05 [bee venom (honey bee)] Physical Exam Vitals: Vital Signs Temp Pulse Pulse Pulse Resp BP BP 10/09/23 17:00 74 18 116/66 10/09/23 16:00 97.7 F 71 18 109/68 10/09/23 15:45 69 17 109/68 10/09/23 15:30 68 16 131/71 10/09/23 15:15 72 15 110/62 10/09/23 15:00 77 13 107/62 10/09/23 14:45 70 14 109/72 10/09/23 14:30 82 16 124/72 10/09/23 14:15 95 13 118/84 10/09/23 14:00 103 H 15 121/63 10/09/23 13:45 86 12 123/73 10/09/23 13:30 79 15 123/73 10/09/23 13:15 74 17 123/73 10/09/23 13:10 70 19 123/73 10/09/23 13:00 78 13 130/83 10/09/23 12:50 97.7 F 109 H 14 130/83 10/09/23 12:01 72 16 10/09/23 11:46 70 16 10/09/23 11:32 67 16 10/09/23 11:15 66 16 10/09/23 11:00 70 16 10/09/23 10:46 66 16 10/09/23 10:30 65 16 10/09/23 10:15 61 16 10/09/23 10:00 65 16 10/09/23 09:53 64 16 10/09/23 09:46 64 16 10/09/23 09:25 97.3 F L 69 16 10/09/23 06:17 97.4 F L 77 16 193/96 BP BP Pulse Ox 10/09/23 17:00 98 10/09/23 16:00 95 10/09/23 15:45 93 L 10/09/23 15:30 94 L 10/09/23 15:15 93 L 10/09/23 15:00 93 L 10/09/23 14:45 93 L 10/09/23 14:30 93 L 10/09/23 14:15 92 L 10/09/23 14:00 94 L 10/09/23 13:45 94 L 10/09/23 13:30 93 L 10/09/23 13:15 94 L 10/09/23 13:10 94 L 10/09/23 13:00 95 10/09/23 12:50 97 10/09/23 12:01 116/68 112/70 99 10/09/23 11:46 105/64 109/53 100 10/09/23 11:32 110/67 119/54 100 10/09/23 11:15 123/68 110/51 100 10/09/23 11:00 115/64 127/62 100 10/09/23 10:46 98/57 108/57 100 10/09/23 10:30 103/58 102/48 100 10/09/23 10:15 131/71 117/55 100 10/09/23 10:00 90/46 102/58 100 10/09/23 09:53 116/56 100 10/09/23 09:46 100/57 90/45 100 10/09/23 09:25 143/89 100 10/09/23 06:17 180/104 98 Intake and Output 10/09/23 10/09/23 10/09/23 06:59 14:59 22:59 Intake Total 2049 225 Output Total 400 200 Balance 1650 25 Intake: IV 1900 Intake, IV Titration 150 225 Amount Sodium Chloride 0.9% 1, 150 225 000 ml In Empty Bag 1 bag @ 1 ML/KG/HR 73.936 mls/ hr IV .[id number] ONE Rx#: [id number] Output: Urine 400 200 Other: Voiding Method Urinal Weight 73.936 kg ABP, PAP, CO, CI - Last 8 Hours Arterial Blood Pressure 130/75 Arterial Blood Pressure 130/59 Arterial Blood Pressure 147/66 Arterial Blood Pressure 147/67 Results CBC & Chem 7: 10/10/23 03:23 10/10/23 03:23 Labs: Abnormal Lab Results - Last 24 Hours (Table) 10/09/23 10/09/23 Range/Units 06:20 06:26 Creatinine 0.60 L (0.66-1.25) mg/dL Glucose 139 H (74-99) mg/dL POC Glucose (mg/dL) 121 H (70-110) mg/dL
--- NOTE | 2023-10-10 14:41 | P.PN ---
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 Patient is laying down in bed in no acute distress, however his blood pressures a bit on the lower s gladys, he was started on Sudafed 60 mg orally 3 times every day to keep his blood pressure around 120/80, patient has been started on aspirin as well as Plavix to keep the stent wide open. He'll be monitored in intensive care unit for the next 24 hours. 10/10: Patient is laying down in bed in no apparent distress, he denies any chest pain, or shortness breath, he has no headache, he has no numbness in his arm or legs, he seems to be tolerating treatment very well, he would be able to get back on his home medication including losartan 25 mg once every day as well as rosuvastatin, patient will follow-up with us as an outpatient 1 week. REVIEW OF SYSTEMS: Constitutional: No documented fever, no chills, no night sweats. No weight change. No weakness, fatigue or lethargy. No daytime sleepiness. EENT: No headache. No blurred vision or double vision, no loss of vision. No loss of Hearing, no ringing in the ears, no dizziness. No nasal drainage or congestion. No epistaxis. No sore throat. Lungs: No shortness of breath, no cough, no sputum production. No wheezing. Reports dyspnea with activity. Cardiovascular: No chest pain, no lower extremity edema. No palpitations. No paroxysmal nocturnal dyspnea. No orthopnea. No lightheadedness or dizziness. No syncopal episodes. Abdominal: Reports abdominal pain. No nausea, vomiting. No diarrhea. No constipation. No bloody or tarry stools reports loss of appetite. Genitourinary: No dysuria, increased frequency, urgency. No urinary retention. Musculoskeletal: No myalgias. No muscle weakness, no gait dysfunction, no frequent falls. No back pain. No neck pain. Integumentary: left base neck wound is dry no lesions. No rash or pruritus. No unusual bruising. No change in hair or nails. Neurologic: No aphasia. No facial droop. No change in mentation. No head injury. No headache. No paralysis. No paresthesia. Psychiatric: No depression. No anxiety. No mood swings. Endocrine: No abnormal blood sugars. No weight change. PHYSICAL EXAMINATION: General: Patient is laying down in bed in no apparent distress. HEENT: Head is atraumatic, normocephalic, pupils were equal round reactive to light and recommendation, extraocular muscle movement were intact, sclera nonicteric, conjunctivae were pale, mucous membranes of the mouth are somewhat dry. Neck: Supple, no JVP, normal carotid upstroke bilaterally, no lymphadenopathy. Incision appears to be clean and dry at the base of the left neck. Chest: Decreased breath sounds at the bases, few rhonchi, no expiratory wheezes, no chest wall tenderness, no intercostal retractions. Heart: First heart sound is normal, second heart sound is normal there is no gallop or murmur. Abdomen: Soft, nontender, nondistended, positive bowel sounds. Extremities: There is no edema no calf tenderness DP +2 bilaterally. Neurologic examination: Patient is awake alert and oriented x3 cranial nerves II-12 appear grossly intact, muscle power were 5 out of 5 in upper extremities and 5 out of 5 in bilateral lower extremities, deep tendon reflexes normal bilaterally. ASSESSMENT AND PLAN: 1. Postoperative day #1 status post left internal carotid artery revascularization with trans-carotid stenting of the left internal carotid artery. Patient is doing much better he denies any chest pain or sores breath, continue current pain management with Tylenol, continue aspirin 81 mg once every day, Plavix 75 mg once every day, monitor the patient very closely, patient can be discharged if okay with vascular surgery. 2. Hypertension and hypertensive cardiovascular disease. We will resume the patient losartan 25 mg orally once every day. 3. Mixed hyperlipidemia. Continue patient on atorvastatin 40 mg orally once every day. 4. Diabetes mellitus type 2. We will restart the patient on metformin 500 mg orally twice every day, Jardiance 25 minute gram orally once every day, as well as Trulicity 0.75 minute gram subcu density once every week. 5 GERD with hiatal hernia. Continue patient on PPI. 6. Anxiety. Continue Lexapro 5 mg once every day. 7. Enlarged prostate. Monitor the patient for urinary retention. 8. History of tonsillar cancer status post right neck dissection with lymph node removal 2016 currently in remission. 9. History of lung cancer in 2018 stable. 10. DVT prophylaxis. Early ambulation, Lovenox 40 mg subcutaneously every 24 hours. 11. GI prophylaxis. Continue PPI. 12. Medically stable for discharge. Objective - Vital Signs Vital signs: Vital Signs Temp 98.1 F 10/10/23 12:00 Pulse 71 10/10/23 14:00 Resp 29 H 10/10/23 14:00 BP 102/59 10/10/23 14:00 Pulse Ox 96 10/10/23 14:00 FiO2 Intake & Output 10/09/23 10/10/23 10/10/23 18:59 06:59 18:59 Intake Total 2350 575 Output Total 600 1000 1505 Balance 1750 -425 -1505 Weight 73.936 kg 75.5 kg Intake: IV 1900 Intake, IV Titration 450 75 Amount Sodium Chloride 0.9% 1, 450 75 000 ml In Empty Bag 1 bag @ 1 ML/KG/HR 73.936 mls/ hr IV .[id number] ONE Rx#: [id number] Oral 500 Output: Urine 600 1000 1505 Other: Voiding Method Urinal Urinal Urinal # Voids 1 1 ABP, PAP, CO, CI - Last Documented Arterial Blood Pressure 130/75 - Labs CBC & Chem 7: 10/10/23 03:23 10/10/23 03:23 Labs: Abnormal Lab Results - Last 24 Hours (Table) 10/09/23 10/10/23 10/10/23 Range/Units 19:33 03:23 03:23 Neutrophils # 7.9 H (1.3-7.7) k/uL Lymphocytes # 0.9 L (1.0-4.8) k/uL Creatinine 0.60 L (0.66-1.25) mg/dL POC Glucose (mg/dL) 152 H (70-110) mg/dL Calcium 8.3 L (8.4-10.2) mg/dL 10/10/23 Range/Units 11:04 Neutrophils # (1.3-7.7) k/uL Lymphocytes # (1.0-4.8) k/uL Creatinine (0.66-1.25) mg/dL POC Glucose (mg/dL) 149 H (70-110) mg/dL Calcium (8.4-10.2) mg/dL
[2023-10-10 14:42] VITALS: BP 102/59; PULSE 71; RESP 29; TEMP 98.1
--- NOTE | 2023-10-10 15:02 | P.DS ---
Providers Date of admission: 10/09/23 05:36 Expected date of discharge: 10/10/23 Attending physician: Nickolas Aviles DO Consults: 10/09/23 09:16 Consult Physician Routine Consulting Provider: Vance Carrillo Consult Reason/Comments: medical management Do you want consulting provider notified?: Yes 10/09/23 11:43 Consult Physician Urgent Consulting Provider: Bolivar Mccloud Consult Reason/Comments: ICU management, s/p TCAR Do you want consulting provider notified?: Yes Primary care physician: Vance Carrillo Hospital Course: Underwent left TCAR on 10/09/23 without issues. Progressed well, tolerating diet, no focal deficits, ambulating well and was discharged home. Procedures: Left TCAR 10/09/23 Patient Condition at Discharge: Good Plan - Discharge Summary Discharge Rx Participant: No New Discharge Prescriptions: No Action metFORMIN HCL [Glucophage] 500 mg PO BID Losartan [Cozaar] 25 mg PO DAILY Rosuvastatin [Crestor] 20 mg PO DAILY Escitalopram [Lexapro] 5 mg PO DAILY Clopidogrel [Plavix] 75 mg PO DAILY Prednisolone Acetate/Pf [Prednisolone Acet 1% Eye Drop] 1 drop LEFT EYE BID Empagliflozin [Jardiance] 25 mg PO DAILY Dulaglutide [Trulicity] 0.75 mg SQ WEEKLY Aspirin 325 mg PO DAILY Discharge Medication List Losartan [Cozaar] 25 mg PO DAILY 05/20/19 [History] Rosuvastatin [Crestor] 20 mg PO DAILY 05/20/19 [History] metFORMIN HCL [Glucophage] 500 mg PO BID 05/20/19 [History] Aspirin 325 mg PO DAILY 10/06/23 [History] Clopidogrel [Plavix] 75 mg PO DAILY 10/06/23 [History] Dulaglutide [Trulicity] 0.75 mg SQ WEEKLY 10/06/23 [History] Empagliflozin [Jardiance] 25 mg PO DAILY 10/06/23 [History] Escitalopram [Lexapro] 5 mg PO DAILY 10/06/23 [History] Prednisolone Acetate/Pf [Prednisolone Acet 1% Eye Drop] 1 drop LEFT EYE BID 10/06/23 [History] Follow up Appointment(s)/Referral(s): Nickolas Aviles DO [STAFF PHYSICIAN] - 1 Week Discharge Disposition: HOME SELF-CARE
[2023-10-10] MEDS ORDERED: prednisoLONE ACETATE 1% OPHTH DROPS 5 ML BTL LEFT EYE SCH (21:00)
[2023-10-11] MEDS ORDERED: ESCITALOPRAM 5 MG TAB PO SCH (09:00)
[2023-10-11] MEDS ORDERED: DAPAGLIFLOZIN PROPANEDIOL 10 MG TABLET PO SCH (09:00)
[2023-10-11] MEDS ORDERED: LOSARTAN 25 MG TAB PO SCH (09:00)
[2023-10-11] MEDS ORDERED: ENOXAPARIN 40 MG/0.4 ML SYRINGE SQ SCH (09:00)
[2023-10-11] MEDS ORDERED: NON FORMULARY DRUG (Rosuvastatin 20 MG Tablet) PO SCH (09:00)
[2023-10-11] MEDS ORDERED: metFORMIN 500 MG TAB PO SCH (17:30)
[2023-10-17] MEDS ORDERED: NON FORMULARY DRUG (Dulaglutide [Trulicity] 0.75 MG/0.5 ML Each) SQ SCH (09:00)
== END 2023-10-10 15:26 | disposition home or self-care (01) | DRG 36 ==
LOC: 2ORMAIN 05:36 → EDSTATUS 07:30 → 2SICU 12:03
PROVIDERS: ADMIT Surgery; ATTEND Surgery
PROC: 037L3DZ Dilation of Left Internal Carotid Artery with Intraluminal Device, Percutaneous Approach (ICD-10-PCS; principal; 2023-10-09 07:30)
DX: I65.22 Occlusion and stenosis of left carotid artery (principal); E11.9 Type 2 diabetes mellitus without complications; E78.2 Mixed hyperlipidemia; I95.81 Postprocedural hypotension; I11.9 Hypertensive heart disease without heart failure; F41.9 Anxiety disorder, unspecified; K21.9 Gastro-esophageal reflux disease without esophagitis; K44.9 Diaphragmatic hernia without obstruction or gangrene; N40.0 Benign prostatic hyperplasia without lower urinary tract symptoms; Z96.653 Presence of artificial knee joint, bilateral; Z79.02 Long term (current) use of antithrombotics/antiplatelets; Z79.82 Long term (current) use of aspirin; Z79.84 Long term (current) use of oral hypoglycemic drugs; Z79.85 Long-term (current) use of injectable non-insulin antidiabetic drugs; Z79.899 Other long term (current) drug therapy; Z85.118 Personal history of other malignant neoplasm of bronchus and lung; Z85.818 Personal history of malignant neoplasm of other sites of lip, oral cavity, and pharynx; Z92.21 Personal history of antineoplastic chemotherapy; Z92.3 Personal history of irradiation; Z98.1 Arthrodesis status
CPT/HCPCS: 37215; 76937; 80048; 85025; 86850; 86900; 86901

== ENCOUNTER → 2023-10-22 | Outpatient (CLI) | payer OTHER ==
[2023-10-22 10:01] LABS: Partial Thromboplastin Time 22.9 sec (22.0-30.0); Prothrombin Time 10.7 sec (10.0-12.5)
[2023-10-22 16:10] LABS: Basophils # (A) 0.11 X 10*3/uL (0.00-0.10); Basophils % (A) 0.8 %; Eosinophils # (A) 0.09 X 10*3/uL (0.04-0.35); Eosinophils % (A) 0.7 %; HCT 50.5 % (39.6-50.0); HGB 17.5 g/dL (13.0-17.0); Lymphocytes # (A) 1.09 X 10*3/uL (0.90-5.00); Lymphocytes % (A) 8.1 %; MCH 29.6 pg (27.0-32.0); MCHC 34.7 g/dL (32.0-37.0); MCV 85.3 FL (80.0-97.0); Mean Platelet Volume 10.2 FL (9.5-12.2); Monocytes # (A) 0.99 X 10*3/uL (0.20-1.00); Monocytes % (A) 7.3 %; NRBC Per 100 WBC 0 X 10*3/uL (0.00-0.01); Neutrophils % (A) 82.7 %; Platelet Count 409 X 10*3/uL (140-440); RBC 5.92 X 10*6/uL (4.40-5.60); RDW 13.3 % (11.5-14.5); WBC 13.53 X 10*3/uL (4.50-10.00)
[2023-10-22 16:20] LABS: ALT 25 U/L (10-49); AST 21 U/L (14-35); Albumin 4.7 g/dL (3.8-4.9); Albumin/Globulin Ratio 1.81 Ratio (1.60-3.17); Alkaline Phosphatase 86 U/L (41-126); BUN/Creat Ratio 21.62 Ratio (12.00-20.00); Blood Urea Nitrogen 17.3 mg/dL (9.0-27.0); Calcium 10.3 mg/dL (8.7-10.3); Carbon Dioxide 26.6 mmol/L (21.6-31.8); Chloride 99 mmol/L (96-109); Globulin 2.6 g/dL (1.6-3.3); Glucose 161 mg/dL (70-110); Potassium 4.7 mmol/L (3.5-5.5); Sodium 138 mmol/L (135-145); Total Bilirubin 0.4 mg/dL (0.3-1.2); Total Protein 7.3 g/dL (6.2-8.2)
== END | disposition home or self-care (01) ==
LOC: LABWHC1 09:26
PROVIDERS: ATTEND Internal Medicine
DX: I10 Essential (primary) hypertension (principal); E11.9 Type 2 diabetes mellitus without complications; E78.2 Mixed hyperlipidemia; R21 Rash and other nonspecific skin eruption
CPT/HCPCS: 36415; 80053; 85025; 85610; 85730; 86038; 86160; 86162

== ENCOUNTER → 2025-01-05 | Outpatient (CLI) | payer OTHER ==
--- NOTE | 2025-01-05 11:13 | XR ---
EXAMINATION TYPE: XR chest 2V DATE OF EXAM: 01/05/2025 10:22 AM COMPARISON: Chest radiographs from 12/09/2010. CLINICAL INDICATION: Male, 64 years old with history of D72.829 ELEVATED WHITE BLOOD CELL COUNT, UNSP ECIFI; TECHNIQUE: XR chest 2V Frontal and lateral views of the chest. FINDINGS: Lungs/Pleura: There is no evidence of pleural effusion, focal consolidation, or pneumothorax. Pulmonary vascularity: Unremarkable. Heart/mediastinum: Cardiomediastinal silhouette is unremarkable. Musculoskeletal: No acute osseous pathology. Right apical surgical clips. IMPRESSION: No acute cardiopulmonary disease/process. [facility], , 01/05/2025 11:10 AM
== END | disposition home or self-care (01) ==
LOC: RADXRMAIN 09:20
PROVIDERS: ATTEND Internal Medicine
DX: D72.829 Elevated white blood cell count, unspecified (principal)
CPT/HCPCS: 71046

== ENCOUNTER → 2025-01-13 | Outpatient (CLI) | payer OTHER ==
--- NOTE | 2025-01-13 07:58 | US ---
EXAMINATION TYPE: US carotid duplex BILAT DATE OF EXAM: 01/13/2025 COMPARISON: 03/13/2015 CLINICAL INDICATION: Male, 64 years old with history of I25.84 CORONARY ATHEROSCLEROSIS DUE TO CALCIF IED C; Left CCA to ICA stent placed one year ago. Hx Lung, neck, and head cancer with right neck diss ection in 2019 Additional History: I65.- Occlusion/stenosis of specified precerebral artery, specified laterality TECHNIQUE: Grayscale, color Doppler and spectral Doppler evaluation of the bilateral carotid systems and vertebral arteries. Indirect Doppler criteria was utilized. FINDINGS: EXAM MEASUREMENTS: RIGHT: Peak Systolic Velocity (PSV) cm/sec ----- Right CCA: 110 ----- Right ICA: 159 ----- Right ECA: 123 ICA/CCA ratio: 1.4 RIGHT: End Diastole cm/sec ----- Right CCA: 41 ----- Right ICA: 50 ----- Right ECA: 19 LEFT: Peak Systolic Velocity (PSV) cm/sec ----- Left CCA: 34 ----- Left ICA: 125 ----- Left ECA: 120 ICA/CCA ratio: 3.7 LEFT: End Diastole cm/sec ----- Left CCA: 10 ----- Left ICA: 22 ----- Left ECA: 14 VERTEBRALS (direction of flow): Right Vertebral: Antegrade Left Vertebral: Antegrade Rhythm: Normal FINANCIAL COACH NOTES: No plaque or intimal thickening, elevated right ICA velocities seen. ? NO flow wit hin the distal left ICA. Stent seen and in tact. Color Doppler imaging shows patency with blood flow throughout the carotid artery. Spectral waveforms are within normal limits. IMPRESSION: Right: Less than 50% stenosis of the carotid bifurcation. Left: Elevated ratio without elevated velocities. Further evaluation of the left carotid system with CT angiogram recommended given low common carotid artery velocity. Criteria for Assigning % of Stenosis / Diameter reduction (Estimation based on the indirect measurements of the internal carotid artery velocities (ICA PSV). 1. Normal (no stenosis)=ICA PSV < 180 cm/s: ratio < 2.0: ICA EDV<40 cm/s. 2. Less than 50% stenosis=ICA PSV < 180 cm/s: ratio < 2.0: ICA EDV<40 cm/s. 3. 50 to 69% stenosis=ICA PSV of 180 to 230 cm/s: ration 2.0 ? 4.0: ICA EDV 40-100 cm/s. PSV 125-180 cm/sec and ICA/CCA PSV Ratio ? 2.0 is also consistent with 50-69% stenosis 4. Greater than 70% stenosis to near occlusion= ICA PSV > 230 cm/s: ratio > 4.0: ICA EDV > 100 cm/s. 5. Near occlusion= ICA PSV velocities may be low or undetectable: variable ratio and ICA EDV. 6. Total occlusion=unable to detect flow. [facility], , 01/13/2025 7:55 AM
--- NOTE | 2025-01-13 13:49 | CA ---
Exercise Nuclear Stress Test Report Name: Caesar Bowles Exam Date: 01/13/2025 09:22 Exam Location: [facility] Stress Ht (in): 67 Wt (lb): 160 BSA: 1.84 Ordering Phys: Vance Carrillo MD Referring Phys: JOY Technologist: RAW Age: 64 Gender: M : 1960 Procedure CPT: Indications: I25.84 CAD ICD-10 Codes: Patient History: Shortness of breath, hypertension, diabetes and ASCAD Medications: Meds past 24 hrs: Pretest Chest Pain: STRESS TEST Chan Protocol Exercise Duration (min:sec): 09:[address] Depressions (mm): Angina Score: Bowens Score: Resting HR (bpm): 77 Peak HR (bpm): 144 Resting BP (mmHg): 159 / 93 Peak BP (mmHg): 256 / 77 MPHR: 158 Target HR: 134 % MPHR: 91 METS: 10.3 Total Dose: Peak Dose: Atropine: Double Product: 83035 BP Response: Stress Termination: TARGET HR REACHED/MAX EXERTION Stress Symptoms: NO SYMPTOMS Stress Summary: ECG ANALYSIS Resting ECG: Stress ECG: CONCLUSIONS Excellent exercise tolerance Normal electrocardiogram stress testing Dr. Elvin Leung MD (Electronically Signed) Final Date: 13 January 2025 13:48
--- NOTE | 2025-01-13 22:20 | NM ---
EXAMINATION TYPE: NM stress cardiolite complete DATE OF EXAM: 01/13/2025 COMPARISON: NONE CLINICAL INDICATION: Male, 64 years old with history of I25.84 CAD, TECHNIQUE: After the intravenous administration of 10.37 mCi Tc 99m Sestamibi - Cardiolite resting S PECT images acquired 60 minutes post injection. At peak stress 26.2 mCi Tc 99m Sestamibi - Stress images obtained 20 minutes post injection The patient was stressed with 0.4mg Lexiscan. FINDINGS: No fixed defects are evident. No reversible stress defects on Spect images. Wall motion is normal. Ejection fraction is calculated to be 65 %. IMPRESSION: 1. No stress-induced ischemic changes. [facility], , 01/13/2025 10:17 PM
== END | disposition home or self-care (01) ==
LOC: RADUSWWP 07:20
PROVIDERS: ATTEND Internal Medicine
DX: I25.84 Coronary atherosclerosis due to calcified coronary lesion (principal); I65.23 Occlusion and stenosis of bilateral carotid arteries; I65.21 Occlusion and stenosis of right carotid artery; E11.9 Type 2 diabetes mellitus without complications; I10 Essential (primary) hypertension
CPT/HCPCS: 93017; 93880; 78452; A9500

== ENCOUNTER → 2025-02-13 | Outpatient (CLI) | payer OTHER ==
--- NOTE | 2025-02-14 10:10 | CA ---
Transthoracic Echo Report Name: Caesar Bowles Age: 64 Gender: M : 1960 Exam Date: 02/13/2025 15:50 Exam Location: [facility] Echo Ht (in): 67 Wt (lb): 155 Ordering Physician: Vance Carrillo MD Attending/Referring Phys: Manager Policy Agnes Andino RDCS Procedure CPT: Indications: I25.84 CORONARY ATHEROSCLEROSIS DUE TO CALCIFIED C Cardiac Hx: Technical Quality: Good Contrast 1: Total Dose (mL): Contrast 2: Total Dose (mL): MEASUREMENTS (Male / Female) Normal Values 2D ECHO LV Diastolic Diameter PLAX 4.4 cm 4.2 - 5.9 / 3.9 - 5.3 cm LV Systolic Diameter PLAX 3.2 cm IVS Diastolic Thickness 0.8 cm 0.6 - 1.0 / 0.6 - 0.9 cm LVPW Diastolic Thickness 1.1 cm 0.6 - 1.0 / 0.6 - 0.9 cm LV Relative Wall Thickness 0.4 LVOT Diameter 2.0 cm LV Diastolic Volume MOD BP 118.9 cm??? 67 - 155 / 56 - 104 cm??? LV Systolic Volume MOD BP 49.9 cm??? 22 - 58 / 19 - 49 cm??? LV Ejection Fraction MOD BP 58.0 % >= 55 % LV Cardiac Index MOD BP 3014.1 cm???/min???m??? LV Diastolic Volume MOD 4C 127.3 cm??? LV Systolic Volume MOD 4C 58.2 cm??? LV Ejection Fraction MOD 4C 54.3 % LV Cardiac Index MOD 4C 3019.4 cm???/min???m??? LV Diastolic Length 4C 9.2 cm LV Systolic Length 4C 7.5 cm LV Diastolic Volume MOD 2C 109.4 cm??? LV Systolic Volume MOD 2C 39.9 cm??? LV Ejection Fraction MOD 2C 63.5 % LV Cardiac Index MOD 2C 3034.4 cm???/min???m??? LV Diastolic Length 2C 9.0 cm LV Systolic Length 2C 6.9 cm LA Volume 58.0 cm??? 18 - 58 / 22 - 52 cm??? LA Volume Index 31.7 cm???/m??? 16 - 28 cm???/m??? DOPPLER AV Peak Velocity 111.2 cm/s AV Peak Gradient 4.9 mmHg AV Mean Velocity 79.9 cm/s AV Mean Gradient 2.8 mmHg AV Velocity Time Integral 21.6 cm LVOT Peak Velocity 93.1 cm/s LVOT Peak Gradient 3.5 mmHg LVOT Velocity Time Integral 20.1 cm LVOT Stroke Volume 65.4 cm??? LVOT Stroke Volume Index 36.1 ml/m??? LVOT Cardiac Index 2859.9 cm???/min???m??? AV Area Cont Eq vti 3.0 cm??? AV Area Cont Eq pk 2.7 cm??? MV Area PHT 5.3 cm??? Mitral E Point Velocity 76.4 cm/s Mitral A Point Velocity 78.4 cm/s Mitral E to A Ratio 1.0 MV Deceleration Time 142.9 ms PV Peak Velocity 122.3 cm/s PV Peak Gradient 6.0 mmHg FINDINGS Left Ventricle Left ventricular ejection fraction is estimated at 55-60 %. Left ventricular cavity size normal. Left ventricular wall thickness normal. No obvious regional wall motion abnormalities. Right Ventricle Normal right ventricular size and function. Unable to estimate the right ventricular systolic pressure. Right Atrium Normal right atrial size. Left Atrium Mildly increased left atrial volume. Mitral Valve Structurally normal mitral valve. No evidence for mitral valve prolapse. No mitral stenosis. Trace mitral regurgitation. Aortic Valve Trileaflet aortic valve. No aortic valve stenosis or regurgitation. Tricuspid Valve Structurally normal tricuspid valve. No tricuspid stenosis. Trace tricuspid regurgitation. Pulmonic Valve Structurally normal pulmonic valve. No pulmonic stenosis. No pulmonic regurgitation. Pericardium No pericardial effusion. Aorta Normal size aortic root and proximal ascending aorta. CONCLUSIONS Normal LV size and systolic function. Minimal mitral and tricuspid regurgitation. Right-sided pressures could not be quantified. No pericardial effusion Previewed by: Dr. Bayron Benavidez MD (Electronically Signed) Final Date: 14 Feb 2025 10:09
== END | disposition home or self-care (01) ==
LOC: RADECHMAIN 15:38
PROVIDERS: ATTEND Internal Medicine
DX: I08.1 Rheumatic disorders of both mitral and tricuspid valves (principal); I25.84 Coronary atherosclerosis due to calcified coronary lesion
CPT/HCPCS: 93306